=== PATIENT | female | born 1960 | race Caucasian/White ===

== ENCOUNTER 2016-06-29 09:33 | Emergency (ER) | payer OTHER ==
[~2016-06-29] VITALS: Ht 160 cm; Wt 150.0 kg
[~2016-06-29 09:33] MED LIST: ALLO100 PO; BUPR150T3 PO; D31000CA PO; FOLI400T PO; GABA300C3 PO; GLIM4 PO; GLUCTAB PO; LOSA100T PO; MECL-62 PO; OMEP20TA PO; ONDA4TAB7 PO; SPIR25TA PO; VENL37.5 PO; ZOFR4TAB3 SL; [UNRECOGNIZED DRUG - OTHER] PO
[2016-06-29 09:34] VITALS: BP 151/66; PULSE 104; RESP 17; TEMP 97.9; O2SAT 99
[2016-06-29 09:41] VITALS: RESP 28
[2016-06-29 09:50] VITALS: BP 137/80; PULSE 91; RESP 44; O2SAT 100
[2016-06-29] MEDS ORDERED: METF1000 PO (10:03)
[2016-06-29] MEDS ORDERED: OMEP20TA PO (10:03)
[2016-06-29] MEDS ORDERED: ALLO100T PO (10:03)
[2016-06-29] MEDS ORDERED: GLIM4TAB PO (10:03)
[2016-06-29] MEDS ORDERED: SPIR25TA PO (10:03)
[2016-06-29] MEDS ORDERED: TRAD5TAB PO (10:03)
[2016-06-29] MEDS ORDERED: RANI150C PO (10:03)
[2016-06-29] MEDS ORDERED: LOSA100T PO (10:03)
[2016-06-29] MEDS ORDERED: EFFE150C PO (10:03)
[2016-06-29] MEDS ORDERED: SODIUM CHLORIDE 0.9% FLUSH 10 ML FLUSH IVF PRN (10:30)
[2016-06-29 10:32] VITALS: O2SAT 99
[2016-06-29 10:46] LABS: AUTOMATED NEUTROPHIL # 4.8 TH/MM3 (1.8-7.7); BASOPHIL # 0.1 TH/MM3 (0-0.2); EOSINOPHIL # 0.2 TH/MM3 (0-0.4); HEMO FLAGS DIFF FINAL; LYMPH % 28.9 % (9.0-44.0); LYMPHOCYTE # 2.3 TH/MM3 (1.0-4.8); MEAN CELL VOLUME 82.7 FL (80.0-100.0); MEAN CORPUSCULAR HEMOGLOBIN 26.3 PG (27.0-34.0); MEAN CORPUSCULAR HGB CONC 31.8 % (32.0-36.0); MONO % 7.3 % (0.0-8.0); NEUT % 60.8 % (16.0-70.0); PLATELET COUNT 309 TH/MM3 (150-450); RED BLOOD COUNT 4.59 MIL/MM3 (4.00-5.30); RED CELL DISTRIBUTION WIDTH 15.1 % (11.6-17.2); WHITE BLOOD COUNT 7.9 TH/MM3 (4.0-11.0)
--- NOTE | 2016-06-29 10:48 | RADRPT ---
EXAM DATE/TIME: 06/29/2016 10:28 [facility] COMPARISON: CHEST SINGLE AP, September 01, 2013, 5:57. INDICATIONS : Short of breath since 6pm yesterday, slight cough and chest discomfort MEDICAL HISTORY : None. SURGICAL HISTORY : None. ENCOUNTER: Initial ACUITY: 1 day PAIN SCORE: 2/10 LOCATION: Bilateral chest FINDINGS: Portable AP view of the chest demonstrates a normal-sized cardiac silhouette. No effusion, consolidat ion, or pneumothorax is visualized. The bones and soft tissues demonstrate no acute abnormality. CONCLUSION: No acute cardiopulmonary abnormality is identified. Teto Pringle MD on June 29, 2016 at 10:46 Board Certified Radiologist. This report was verified electronically.
[2016-06-29 10:57] LABS: APTT (PATIENT) 27.1 SEC (24.3-30.1); PROTHROMBIN TIME - PATIENT 10.7 SEC (9.8-11.6)
[2016-06-29 10:59] LABS: ALT (GPT) 53 U/L (10-53); ANION GAP 12 MEQ/L (5-15); AST (GOT) 36 U/L (15-37); BICARBONATE 23.9 MEQ/L (21.0-32.0); BLOOD UREA NITROGEN 25 MG/DL (7-18); CHLORIDE 99 MEQ/L (98-107); GLOMERULAR FILTRATION RATE 55 ML/MIN (>89); MAGNESIUM 1.8 MG/DL (1.5-2.5); POTASSIUM 4.3 MEQ/L (3.5-5.1); SODIUM (NA) 135 MEQ/L (136-145)
[2016-06-29 11:02] LABS: ALKALINE PHOSPHATASE 95 U/L (45-117); TOTAL BILIRUBIN ADULT 0.3 MG/DL (0.2-1.0)
[2016-06-29] MEDS ORDERED: IOHEXOL 350 MG/ML 10 ML VIAL (for RAD DIAG) IV ONE (12:33)
--- NOTE | 2016-06-29 12:39 | RADRPT ---
EXAM DATE/TIME: 06/29/2016 12:21 [facility] COMPARISON: CHEST SINGLE AP, June 29, 2016, 10:28. INDICATIONS : Shortness of breath for one day and right sided chest pain. IV CONTRAST: 70 cc Omnipaque 350 (iohexol) IV RADIATION DOSE: 29.04 CTDIvol (mGy) MEDICAL HISTORY : Hypertension. Diabetes mellitus type 2. SURGICAL HISTORY : Cholecystectomy. ENCOUNTER: Initial ACUITY: 1 day PAIN SCALE: 4/10 LOCATION: Right chest TECHNIQUE: Volumetric scanning of the chest was performed using a pulmonary embolism protocol MIP images were re constructed. Using automated exposure control and adjustment of the mA and/or kV according to patien t size, radiation dose was kept as low as reasonably achievable to obtain optimal diagnostic quality images. FINDINGS: PULMONARY ARTERIES: No filling defects are seen in the pulmonary arteries through the segmental level. LUNGS: There is no consolidation or pneumothorax . No concerning pulmonary nodule is visualized. PLEURAE: There is no pleural thickening or pleural effusion. MEDIASTINUM: There is good visualization of the great vessels of the middle mediastinum. No evidence of mediastin al or hilar adenopathy/mass. MUSCULOSKELETAL: Within normal limits for patient age. MISCELLANEOUS: The visualized upper abdominal organs demonstrate no acute abnormality. There is mild steatosis of th e liver. The patient is status post cholecystectomy and CONCLUSION: 1. No evidence of pulmonary embolism. 2. Lungs are clear. 3. Mild steatosis of the liver. 4. Status post cholecystectomy. Braulio Tena MD on June 29, 2016 at 12:36 Board Certified Radiologist. This report was verified electronically.
--- NOTE | 2016-06-29 15:04 | PD ---
HPI Chief Complaint: Respiratory Symptoms Time Seen by Provider: 09:58 Travel History International Travel<30 days: No Contact w/Intl Traveler<30days: No Traveled to known affect area: No History of Present Illness HPI Patient 56-year-old female with a history of asthma presents emergency Department with shortness of breath. She states that she was sent here by primary care physician to rule out "a blood clot". Patient denies any fever or hemoptysis or other sputum production. Denies any left-sided chest pain but does endorse some right-sided aching and spasms. Denies any back pain nausea vomiting diarrhea abdominal pain. Patient states her symptoms be going on for the past 2 days. States waxing and waning but gradually worsening overall. PFSH Past Medical History Asthma: Yes Blood Disorders: No Anxiety: Yes Depression: Yes Heart Rhythm Problems: No Cancer: No Cardiovascular Problems: No High Cholesterol: No Chemotherapy: No Chest Pain: No Congestive Heart Failure: No COPD: No Diabetes: Yes Patient Takes Glucophage: Yes Diminished Hearing: No Endocrine: Yes Gastrointestinal Disorders: Yes (HEARTBURN, ULCERS) GERD: Yes Gout: Yes Genitourinary: No Hypertension: Yes Immune Disorder: No Musculoskeletal: No Neurologic: No Psychiatric: Yes Reproductive: Yes (OVARIAN CYSTS) Respiratory: Yes Radiation Therapy: No Sleep Apnea: Yes (CPAP AT HS) Thyroid Disease: No Ulcer: Yes Influenza Vaccination: Yes ?: Not Menopausal: Yes : 2 Para: 1 Miscarriage: 1 Dilation and Curettage (D&C): Yes (X 2) Past Surgical History Cholecystectomy: Yes Gynecologic Surgery: Yes Tonsillectomy: Yes Other Surgery: Yes (GALLBLADDER REMOVAL, D&CX2) Family History Family Hypercholesterolemia: Yes Social History Alcohol Use: No Tobacco Use: No Substance Use: No Allergies-Medications (Allergen,Severity, Reaction): Coded Allergies: Compazine (Verified Allergy, Severe, Twitching, 09/11/15) "Tardive dyskinesia" Bupropion (Unverified Allergy, Unknown, 09/11/15) Codeine (Verified Adverse Reaction, Severe, Nausea/Vomiting, 09/11/15) Tylox (Verified Adverse Reaction, Severe, NV DIZZY, 09/11/15) Celexa (Unverified Adverse Reaction, Intermediate, HIVES, 09/11/15) Nonsteroidal Anti-Inflammatory Agts (Verified Adverse Reaction, Unknown, ) Oxycodone (Verified Adverse Reaction, Unknown, 06/29/16) vomiting Reported Meds & Prescriptions Reported Meds & Active Scripts Active Reported Tradjenta (Linagliptin) 5 Mg Tab 5 Mg PO DAILY Ranitidine (Ranitidine HCl) 150 Mg Cap 150 Mg PO BID Effexor XR 24 HR (Venlafaxine HCl) 150 Mg Cap 150 Mg PO DAILY Spironolactone 25 Mg Tab 25 Mg PO DAILY Omeprazole 20 Mg Tab 20 Mg PO BID Metformin (Metformin HCl) 1,000 Mg Tab 1,000 Mg PO BIDPC With meals Losartan (Losartan Potassium) 100 Mg Tab 100 Mg PO DAILY Glimepiride 4 Mg Tab 4 Mg PO DAILYAC Take with breakfast or first main meal Allopurinol 100 Mg Tab 100 Mg PO BID Review of Systems Except as stated in HPI: all other systems reviewed are Neg Physical Exam Narrative GENERAL: Well-developed well-nourished, morbidly obese in no apparent distress. SKIN: Focused skin assessment warm/dry. HEAD: Atraumatic. Normocephalic. EYES: Pupils equal and round. No scleral icterus. No injection or drainage. ENT: No nasal bleeding or discharge. Mucous membranes pink and moist. NECK: Trachea midline. No JVD. CARDIOVASCULAR: Regular rhythm with minimal tachycardia.. No murmur appreciated. 2+ bilaterally equal pulses in all 4 extremities.. RESPIRATORY: No accessory muscle use. Clear to auscultation. Breath sounds equal bilaterally. GASTROINTESTINAL: Abdomen soft, non-tender, nondistended. Hepatic and splenic margins not palpable. MUSCULOSKELETAL: No obvious deformities. No clubbing. No cyanosis. No edema. NEUROLOGICAL: Awake and alert. No obvious cranial nerve deficits. Motor grossly within normal limits. Normal speech. PSYCHIATRIC: Appropriate mood and affect; insight and judgment normal. Data Data Last Documented VS Vital Signs Date Time Temp Pulse Resp B/P Pulse Ox O2 Delivery O2 Flow Rate FiO2 06/29/16 15:56 88 19 128/79 100 06/29/16 10:33 Room Air 06/29/16 09:34 97.9 Orders Electrocardiogram (06/29/16 09:49) Complete Blood Count With Diff (06/29/16 10:27) Comprehensive Metabolic Panel (06/29/16 10:27) Magnesium (Mg) (06/29/16 10:27) Prothrombin Time / Inr (Pt) (06/29/16 10:27) Act Partial Throm Time (Ptt) (06/29/16 10:27) Troponin I (06/29/16 10:27) Chest, Single Ap (06/29/16 10:27) Ecg Monitoring (06/29/16 10:27) Iv Access Insert/Monitor (06/29/16 10:27) Oximetry (06/29/16 10:27) Oxygen Administration (06/29/16 10:27) Sodium Chloride 0.9% Flush (Ns Flush) (06/29/16 10:30) Ct Pulmonary Angiogram (06/29/16 10:27) B-Type Natriuretic Peptide (06/29/16 10:27) Iohexol 350 Inj (Omnipaque 350 Inj) (06/29/16 12:33) Labs Laboratory Tests Test 06/29/16 10:20 White Blood Count 7.9 TH/MM3 Red Blood Count 4.59 MIL/MM3 Hemoglobin 12.1 GM/DL Hematocrit 38.0 % Mean Corpuscular Volume 82.7 FL Mean Corpuscular Hemoglobin 26.3 PG Mean Corpuscular Hemoglobin 31.8 % Concent Red Cell Distribution Width 15.1 % Platelet Count 309 TH/MM3 Mean Platelet Volume 9.3 FL Neutrophils (%) (Auto) 60.8 % Lymphocytes (%) (Auto) 28.9 % Monocytes (%) (Auto) 7.3 % Eosinophils (%) (Auto) 2.0 % Basophils (%) (Auto) 1.0 % Neutrophils # (Auto) 4.8 TH/MM3 Lymphocytes # (Auto) 2.3 TH/MM3 Monocytes # (Auto) 0.6 TH/MM3 Eosinophils # (Auto) 0.2 TH/MM3 Basophils # (Auto) 0.1 TH/MM3 CBC Comment DIFF FINAL Differential Comment Prothrombin Time 10.7 SEC Prothromb Time International 1.0 RATIO Ratio Activated Partial 27.1 SEC Thromboplast Time Sodium Level 135 MEQ/L Potassium Level 4.3 MEQ/L Chloride Level 99 MEQ/L Carbon Dioxide Level 23.9 MEQ/L Anion Gap 12 MEQ/L Blood Urea Nitrogen 25 MG/DL Creatinine 1.03 MG/DL Estimat Glomerular Filtration 55 ML/MIN Rate Random Glucose 275 MG/DL Calcium Level 10.2 MG/DL Magnesium Level 1.8 MG/DL Total Bilirubin 0.3 MG/DL Aspartate Amino Transf 36 U/L (AST/SGOT) Alanine Aminotransferase 53 U/L (ALT/SGPT) Alkaline Phosphatase 95 U/L Troponin I LESS THAN 0.02 NG/ML B-Type Natriuretic Peptide LESS THAN 2 PG/ML Total Protein 8.2 GM/DL Albumin 3.8 GM/DL MDM Medical Decision Making Medical Screen Exam Complete: Yes Emergency Medical Condition: Yes Interpretation(s) EKG shows normal sinus rhythm at a rate in 91, normal axis normal R-wave progression. No concerning ST-T changes. Intervals within normal limits. There is a isolated Q-wave in lead 3 without any concordant Q waves. Nonspecific. Borderline EKG. Differential Diagnosis PE, asthma exacerbation, ACS unlikely, LA unlikely. Narrative Course Patient was roomed in emergency department, observed for several hours in the emergency department. Initial workup including EKG troponin basic labs were negative. Patient was sent for CT pulmonary embolism exam: Last 24 hours Impressions Chest X-Ray 06/29/16 1027 Signed Impressions: Service Date/Time: Wednesday, June 29, 2016 10:28 - CONCLUSION: No acute cardiopulmonary abnormality is identified. Teto Pringle MD CT Angiography 06/29/16 1027 Signed Impressions: Service Date/Time: Wednesday, June 29, 2016 12:21 - CONCLUSION: 1. No evidence of pulmonary embolism. 2. Lungs are clear. 3. Mild steatosis of the liver. 4. Status post cholecystectomy. Braulio Tena MD Discuss results with the patient. Her heart rate is normalized without intervention. Lung sounds are clear. She was offered admission to the chest pain center for further workup and she declined at this time stating she rather follow up with her primary care physician. Think that is reasonable given her symptomology is highly uncharacteristic for ACS. She was discharged home discussed return to ED criteria and follow with her primary care physician at her earliest convenience. Diagnosis Primary Impression: SOB (shortness of breath) Disposition: 01 DISCHARGE HOME Condition: Stable Jesus Glass MD June 29, 2016 15:04
[2016-06-29 15:56] VITALS: BP 128/79
--- NOTE | 2016-06-30 15:38 | EKG ---
Date Performed: 06/29/2016 Time Performed: 09:53:19 PTAGE: 56 years EKG: Sinus rhythm POSSIBLE INFERIOR MYOCARDIAL INFARCTION BORDERLINE ECG Compared to prior tracing no significant cordon christianne PREVIOUS TRACING : 05/14/2014 18.43 DOCTOR: Darren Cobb Interpretating Date/Time 06/30/2016 15:37:32
== END 2016-06-29 15:57 | disposition home or self-care (01) ==
LOC: NEPE 09:33
DX: R06.02 Shortness of breath (principal); R94.31 Abnormal electrocardiogram [ECG] [EKG]; I10 Essential (primary) hypertension
CPT/HCPCS: 71010; 71275; 80053; 83735; 83880; 84484; 85025; 85610; 85730; 93005; 99285; Q9967

== ENCOUNTER → 2016-09-28 | Day surgery (SDC) | payer OTHER ==
[~2016-09-28] MED LIST changes: -ALLO100 PO; +ALLO100T PO; -BUPR150T3 PO; -D31000CA PO; +EFFE150C PO; -FOLI400T PO; -GABA300C3 PO; -GLIM4 PO; +GLIM4TAB PO; -GLUCTAB PO; -MECL-62 PO; +METF1000 PO; -ONDA4TAB7 PO; +PROPOFOL 100 MG/10 ML INJ IV ONE; +RANI150C PO; +TRAD5TAB PO; -VENL37.5 PO; -ZOFR4TAB3 SL; -[UNRECOGNIZED DRUG - OTHER] PO
--- NOTE | 2016-09-28 11:22 | GIPROC ---
[facility] [address] [facility], [address] EGD PROCEDURE REPORT EXAM DATE: 09/28/2016 PATIENT NAME: Janet Caceres MR #: [id number] BIRTHDATE: 1960 ATTENDING: Laura Chakraborty MD ORDER #: [id number] TRIAL MGR: Dinora Murray RN STATUS: outpatient INDICATIONS: The patient is a 56 yr old female here for an EGD due to history of esophageal reflux and abnormal CT of the GI tract PROCEDURE PERFORMED: EGD, diagnostic MEDICATIONS: None and Per Anesthesia. TOPICAL ANESTHETIC: CONSENT: The patient understands the risks and benefits of the procedure and understands that these risks include, but are not limited to: sedation, allergic reaction, infection, perforation and/or bleeding. Alternative means of evaluation and treatment include, among others: physical exam, x-rays, and/or surgical intervention. The patient elects to proceed with this endoscopic procedure. medical equipment was checked for proper function. Hand hygiene and appropriate measures for infection prevention was taken. After the risks, benefits and alternatives of the procedure were thoroughly explained, Informed consent was verified, confirmed and timeout was successfully executed by the treatment team. The patient was anesthetized with topical anesthesia and the EC-[id number] ([id number]) endoscope was introduced through the mouth and advanced to the stomach antrum. Retroflexed views revealed no abnormalities The gastroscope was then slowly withdrawn and removed. ESOPHAGUS: The mucosa of the esophagus appeared normal. STOMACH: There was a moderate amount of residual food seen in the entire examined stomach. Due to the residual food, complete mucosal examination could not be performed. Based on this, I suspect the patient has some level of gastroparesis. ADVERSE EVENTS: There were no complications. IMPRESSIONS: 1. The esophagus appeared normal 2. Food residue in the entire examined stomach 3. Retroflexed views revealed no abnormalities RECOMMENDATIONS: 1. Anti-reflux regimen 2. Xray: Gastric Emptying Scan PATIENT CONDITION: stable DISPOSITION: Home REPEAT EXAM: Return 8 weeks EGD Laura Chakraborty MD eSigned: Laura Chakraborty MD 09/28/2016 11:22 AM cc: Darryl Crawford [facility]
== END | disposition home or self-care (01) ==
LOC: ESDC 09:00
PROVIDERS: ATTEND Internal Medicine Gastroenterology
DX: K21.9 Gastro-esophageal reflux disease without esophagitis (principal); R93.3 Abnormal findings on diagnostic imaging of other parts of digestive tract
CPT/HCPCS: 00740; 43235; J3010